=== PATIENT | female | born 1955 | race Caucasian/White ===

== ENCOUNTER 2017-12-23 11:07 | Outpatient (CLI) | payer BC | END 2017-12-23 11:08 | disposition home or self-care (01) | LOC: BICMAMMO 11:07 | PROVIDERS: ATTEND Obstetrics & Gynecology | DX: Z12.31 Encounter for screening mammogram for malignant neoplasm of breast (principal); R92.1 Mammographic calcification found on diagnostic imaging of breast | CPT/HCPCS: 77063; 77067 ==

== ENCOUNTER 2018-07-29 12:26 | Emergency (ER) | payer BC | END 2018-07-29 14:34 | disposition home or self-care (01) | LOC: ERS 12:26 | DX: T63.441A Toxic effect of venom of bees, accidental (unintentional), initial encounter (principal) | CPT/HCPCS: 99282 ==

== ENCOUNTER 2019-03-25 21:24 | Emergency (ER) | payer BC | END 2019-03-25 22:24 | disposition home or self-care (01) | LOC: ERS 21:24 | DX: H43.812 Vitreous degeneration, left eye (principal) | CPT/HCPCS: 99283 ==

== ENCOUNTER 2019-04-28 11:55 | Day surgery (SDC) | payer BC ==
[2019-04-27 10:36] VITALS: BMI 21.4
[~2019-04-28 11:55] MED LIST: Bupivacaine PF 0.75% SDV 10 ML ONE; CEFAZOLIN 1 GM VIAL ONE; EPINEPHrine 0.3 MG in Ophthalmic Irrigation Solution 500 ML IRR SCH; Fentanyl 100 MCG/2 ML VIAL ONE; Lidocaine 1% PF 5 ML VIAL ONE; Lidocaine 4% PF 5 ML AMP ONE; Maxitrol 0.1% Opth Oint 3.5 GM TUBE ONE; Midazolam HCl 2 mg/2 ml Vial ONE; PROPOFOL 200 MG/20 ML VIAL ONE; Triamcinolone 40 MG/ML VIAL ONE
[2019-04-28] MEDS ORDERED: Phenylephrine 2.5% Ophth Soln 5 ML BOT ONE (12:36)
[2019-04-28] MEDS ORDERED: Cyclopentolate 1% Opth Drop 2 ML BOT ONE (12:37)
--- NOTE | 2019-04-28 23:14 | OP ---
DATE OF PROCEDURE: 04/28/2019 PRINCIPAL PREOPERATIVE DIAGNOSIS: Vitreous hemorrhage, left eye. POSTOPERATIVE DIAGNOSES: 1. Vitreous hemorrhage, left eye. 2. Horseshoe retinal tear, left eye. ESTIMATED BLOOD LOSS: None. SPECIMENS REMOVED: None. COMPLICATIONS: None. ANESTHESIA: MAC with retrobulbar block. SUMMARY OF THE OPERATION: The patient was identified in the preoperative holding area, where the correct eye being the left eye was marked for surgery. The patient was taken to the operating room, where MAC anesthesia was induced. A retrobulbar block was administered into the left eye. The block consisted of a 1:1 ratio of 4% lidocaine and 0.75% Marcaine. Total of 5 mL was administered. The left eye was then prepped and draped in the usual sterile ophthalmic fashion for surgery. A wire-clip lid speculum was placed. A standard 25-gauge pars plana vitrectomy platform was fashioned with trocars placed approximately 4 mm from the limbus. The infusion was noted to be within the vitreous cavity prior to being turned on to an infusion pressure of 30 mmHg. The light pipe and microvitrector were introduced into the eye under visualization with the BIOM viewing system. Significant vitreous hemorrhage was noted obscuring adequate view of the fundus. A careful core vitrectomy was performed, followed by progressively posterior and peripheral shave vitrectomy as the view became clear with clearance of the vitreous hemorrhage. A horseshoe retinal tear was noted at approximately 1:30. Great care was taken to relieve all traction from this defect. The Endolaser was used to provide barricade laser with 3 to 4 confluent rows of laser around the aforementioned defect. The 360-degree scleral depression exam of the periphery was performed, and no defects beyond the initial one were noted. The cannulas were sequentially removed with suturing required of the superotemporal sclerotomy. Following suturing, all sclerotomies were noted to be watertight. Subconjunctival Ancef and Kenalog were injected. The wire-clip lid speculum was removed, followed by application of TobraDex ophthalmic ointment and a light patch and shield. The patient tolerated the procedure well and was taken to outpatient recovery area in good condition. Job ID: [id number]
== END 2019-04-28 15:56 | disposition home or self-care (01) ==
LOC: SDC 11:55
PROVIDERS: ATTEND Ophthalmology Retina Specialist
PROC: 08T53ZZ Resection of Left Vitreous, Percutaneous Approach (ICD-10-PCS; principal; 2019-04-28)
PROC: 08QF3ZZ Repair Left Retina, Percutaneous Approach (ICD-10-PCS; principal; 2019-04-28)
DX: H43.12 Vitreous hemorrhage, left eye (principal); H33.312 Horseshoe tear of retina without detachment, left eye
CPT/HCPCS: J0171; J0690; J2001; J2250; J2704; J3010; J3301; J3490

== ENCOUNTER 2019-08-10 20:23 | Inpatient (IN) | payer BC, OTHER ==
[~2019-08-10 20:23] MED LIST changes: -Bupivacaine PF 0.75% SDV 10 ML ONE; -CEFAZOLIN 1 GM VIAL ONE; -EPINEPHrine 0.3 MG in Ophthalmic Irrigation Solution 500 ML IRR SCH; -Fentanyl 100 MCG/2 ML VIAL ONE; +Iopamidol-370 76% 500 ML 1 ML ONE; -Lidocaine 1% PF 5 ML VIAL ONE; -Lidocaine 4% PF 5 ML AMP ONE; -Maxitrol 0.1% Opth Oint 3.5 GM TUBE ONE; -Midazolam HCl 2 mg/2 ml Vial ONE; -PROPOFOL 200 MG/20 ML VIAL ONE; -Triamcinolone 40 MG/ML VIAL ONE
[2019-08-10 20:41] LABS: #Basophils 0.1 thou/uL (0.0-0.2); #Eosinphils 0.1 thou/uL (0.0-0.7); #Lymphocytes 3.2 thou/uL (1.20-3.40); #Monocytes 0.8 thou/uL (0.11-0.59); #Neutrophils 3.3 thou/uL (1.40-6.50); %Basophils 1.1 % (0.0-1.0); %Eosinophils 1.5 % (0.0-10.0); %Lymphocytes 42.5 % (21.0-51.0); %Monocytes 10.1 % (0.0-10.0); %Neutrophils 44.9 % (42.0-75.0); Hemoglobin 14.1 g/dL (12.0-16.0); Mean Corpuscular HGB CONC 32.4 g/dL (32.0-36.0); Mean Corpuscular Hemoglobin 31.3 pg (27.0-31.0); Mean Corpuscular Volume 96.6 fL (78.0-98.0); Mean Platelet Volume 7.7 fL (7.4-10.4); Platelet Count 266 thou/uL (130-400); RBC Distribution Width 11.8 % (11.5-14.5); Red Blood Cell (RBC) Count 4.52 mill/uL (4.20-5.40); White Blood Cell (WBC) Count 7.4 thou/uL (4.8-10.8)
[2019-08-10 20:47] LABS: INR-International Normal Ratio 0.9; PTT 29.2 SEC (22.9-36.1); Prothrombin Time 12.6 sec (12.0-14.7)
--- NOTE | 2019-08-10 20:52 | CT ---
CT BRAIN WITHOUT CONTRAST: Indication: History of level I stroke with facial droop and right sided weakness. FINDINGS: No definite acute infarct, hemorrhage, or hydrocephalus is present. Septum pallidum and hemorrhage ar e midline. Skull and intracranial soft tissues are within normal limits. IMPRESSION: No acute intracranial abnormality. Findings were called to Gracie Caceres, Subcontract Administrator, to Dr. Garrison at 8:38 p.m. on 08-10-2019. Code CR POS: BH
[2019-08-10 20:54] LABS: ALT (SGPT) 16 U/L (8-55); AST (SGOT) 19 U/L (5-34); Albumin 4.5 g/dL (3.4-4.8); Alkaline Phosphatase 77 U/L (40-110); Anion Gap 13 mmol/L (10-20); BUN (Urea Nitrogen) 10 mg/dL (9.8-20.1); Bilirubin, Total 0.4 mg/dL (0.2-1.2); CK (CPK) 60 U/L (29-168); Calc. Creatinine Clearance 0 mL/min (70-130); Calcium 10.3 mg/dL (7.8-10.44); Carbon Dioxide 31 mmol/L (23-31); Chloride 101 mmol/L (98-107); Estimated GFR-MDRD 78; Globulin 3.1 g/dL (2.4-3.5); Glucose 144 mg/dL (80-115); Potassium 3.5 mmol/L (3.5-5.1); Protein, Total 7.6 g/dL (6.0-8.3); Sodium 141 mmol/L (136-145)
[2019-08-10 21:26] LABS: Bilirubin Negative (Negative); Blood, Urine Negative (Negative); Clarity Clear (Clear); Glucose, Urine (Dipstick) Normal (Negative); Leukocyte Negative Leu/uL (Negative); Nitrite Negative (Negative); Protein, Urine (Dipstick) Negative (Neg-Trace); Urobilinogen Normal mg/dL (Less than 2)
[2019-08-10] MEDS ORDERED: Aspirin 325 MG TAB ONE (21:54)
[2019-08-11 01:00] LABS: Troponin I 0.021 ng/mL (< 0.028)
[2019-08-11] MEDS ORDERED: Acetaminophen 650 MG Suppository PR PRN (02:27)
[2019-08-11 03:07] LABS: #Basophils 0.1 thou/uL (0.0-0.2); #Lymphocytes 1.6 thou/uL (1.20-3.40); #Monocytes 0.4 thou/uL (0.11-0.59); #Neutrophils 7.3 thou/uL (1.40-6.50); %Basophils 0.8 % (0.0-1.0); %Eosinophils 0.3 % (0.0-10.0); %Lymphocytes 17.1 % (21.0-51.0); %Monocytes 3.8 % (0.0-10.0); %Neutrophils 78.1 % (42.0-75.0); Hemoglobin 14.5 g/dL (12.0-16.0); Mean Corpuscular HGB CONC 33.1 g/dL (32.0-36.0); Mean Corpuscular Hemoglobin 31.7 pg (27.0-31.0); Mean Platelet Volume 8.3 fL (7.4-10.4); Platelet Count 244 thou/uL (130-400); RBC Distribution Width 11.7 % (11.5-14.5); Red Blood Cell (RBC) Count 4.56 mill/uL (4.20-5.40); White Blood Cell (WBC) Count 9.3 thou/uL (4.8-10.8)
--- NOTE | 2019-08-11 03:19 | PDOC.HHP ---
Hospitalist HPI - History of Present Illness AMS/Dysarthria History of Present Illness: Per ED notes she had been noted to have a right facial droop and right sided weakness with ataxia that started at 19:55pm yesterday evening. Brought in by her daughter. She apparently was recently admitted at [facility] where she had a normal CT head and normal Brain MRI. Reportedly at baseline when she was discharged home and suddenly started with tingling in her right arm with weakness. ED Course: CT head showed no acute intracranial abnormality. CTA done as well, reportedly unremarkable. UA showed Specific Bruce of 1.045, otherwise normal. WCC 7.4, Hgb 14.1, Hct 43.7, Platelets 266 Trop negative. CK 60. BMP normal. Given Aspirin in the ED. Hospitalist ROS - Review of Systems ROS unobtainable: due to mental status - Medication Medications: ALLERGIES: NKDA CURRENT MEDICATIONS: To be confirmed. Hospitalist History - Past Medical History Source: patient - Past Surgical History Past Surgical History: reports: Hysterectomy, Hernia Repair - Family History Family History: reports: no pertinent history - Social History Smoking Status: Never smoker Alcohol: reports: None Drugs: reports: none Living Situation: With Family - Exam General Appearance: ill appearing General - other findings: Chills, visibly upset and agitated, attempting to get out of bed Eye: PERRL, anicteric sclera ENT: normocephalic atraumatic Neck: supple, no lymphadenopathy Heart: RRR, normal peripheral pulses Respiratory: CTAB, normal chest expansion Gastrointestinal: soft Extremities: no edema Psychiatric - other findings: Patient agitated, dysarthria, confused Hospitalist Results - Labs Result Diagrams: 08/11/19 02:52 08/11/19 02:52 Lab results: WBC 7.4 thou/uL (4.8-10.8) 08/10/19 20:30 Hgb 14.1 g/dL (12.0-16.0) 08/10/19 20:30 Hct 43.7 % (36.0-47.0) 08/10/19 20:30 MCV 96.6 fL (78.0-98.0) 08/10/19 20:30 Plt Count 266 thou/uL (130-400) 08/10/19 20:30 Neutrophils % 44.9 % (42.0-75.0) 08/10/19 20:30 Sodium 141 mmol/L (136-145) 08/10/19 20:30 Potassium 3.5 mmol/L (3.5-5.1) 08/10/19 20:30 Chloride 101 mmol/L (98-107) 08/10/19 20:30 Carbon Dioxide 31 mmol/L (23-31) 08/10/19 20:30 BUN 10 mg/dL (9.8-20.1) 08/10/19 20:30 Creatinine 0.75 mg/dL (0.6-1.1) 08/10/19 20:30 Glucose 144 mg/dL (80-115) H 08/10/19 20:30 Calcium 10.3 mg/dL (7.8-10.44) 08/10/19 20:30 Total Bilirubin 0.4 mg/dL (0.2-1.2) 08/10/19 20:30 AST 19 U/L (5-34) 08/10/19 20:30 ALT 16 U/L (8-55) 08/10/19 20:30 Alkaline Phosphatase 77 U/L (40-110) 08/10/19 20:30 Creatine Kinase 60 U/L (29-168) 08/10/19 20:30 Troponin I 0.021 ng/mL (< 0.028) 08/11/19 00:23 Serum Total Protein 7.6 g/dL (6.0-8.3) 08/10/19 20:30 Albumin 4.5 g/dL (3.4-4.8) 08/10/19 20:30 Urine Ketones Negative mg/dL (Negative) 08/10/19 21:13 Urine Blood Negative (Negative) 08/10/19 21:13 Urine Nitrite Negative (Negative) 08/10/19 21:13 Ur Leukocyte Esterase Negative Lauren/uL (Negative) 08/10/19 21:13 - EKG Interpretation EKG: NSR< HR 87. Normal ST segments and normal T waves. - Radiology Interpretation CT scan - head Status: report reviewed by hi Hospitalist H&P A/P - Problem (1) Confused Code(s): R41.0 - DISORIENTATION, UNSPECIFIED Status: Acute (2) Dysarthria Code(s): R47.1 - DYSARTHRIA AND ANARTHRIA Status: Acute (3) Ataxia Code(s): R27.0 - ATAXIA, UNSPECIFIED Status: Acute (4) Fever and chills Code(s): R50.9 - FEVER, UNSPECIFIED Status: Acute - Plan Plan: Patient with temp of 99.7 on arrival to Stroke Floor with chills. No obvious source of infection. CXR ordered as well as UCx (despite UA negative). Frequently urinating since arrival to floor. Bladder scan to assess for PVR/possible retention. Tylenol for fever. COVID testing ordered following discussion with Dr. Billingsley. Lactic acid, blood cultures, Procalcitonin and CRP ordered as well. NPO. Consult ID for possible sepsis. Neuro consult and MRI in the morning. Obtain records from [facility]. CODE STATUS FULL Surrogate decision maker is her daughter Polina Birmingham who is a medical student that recently graduated. Discussed with Dr. Billingsley who agrees with plan as above.
[2019-08-11 03:24] LABS: Lactic Acid 2.1 mmol/L (0.5-2.2); Phosphorus 2.5 mg/dL (2.3-4.7)
[2019-08-11 03:32] LABS: Troponin I Less than 0.010 ng/mL (< 0.028)
[2019-08-11 03:36] LABS: Anion Gap 18 mmol/L (10-20); BUN (Urea Nitrogen) 8 mg/dL (9.8-20.1); Calc. Creatinine Clearance 0 mL/min (70-130); Calcium 10.1 mg/dL (7.8-10.44); Carbon Dioxide 23 mmol/L (23-31); Cardiac Risk 3.8 (Less than 4.5); Chloride 102 mmol/L (98-107); Cholesterol 207 mg/dl (< 200 Desired); Estimated GFR-MDRD 83; Glucose 137 mg/dL (80-115); HDL Cholesterol 54 mg/dL (>60 Neg Risk); LDL Cholesterol, Calculated 141 mg/dL; Sodium 139 mmol/L (136-145); Triglycerides 58 mg/dL (Less than 150)
[2019-08-11 04:03] VITALS: BMI 23.7
--- NOTE | 2019-08-11 08:21 | CT ---
CTA OF THE HEAD AND NECK WITH IV CONTRAST AND 3D REFORMATTED IMAGING: COMPARISON: CT of the brain without contrast dated 08/10/2019. FINDINGS: CTA OF THE NECK: There is calcified granuloma within the superior segment of the right lower lobe. The visualized aor tic arch and great vessels of the neck origins are within normal limits. No hemodynamically signific ant stenosis, occlusion, or aneurysmal formation is demonstrated. No definite enlarged lymph nodes a re evident. Thyroid, submandibular, and parotid glands are normal-appearing. There is mild cervical spondylosis. CTA OF THE HEAD: No hemodynamically significant stenosis, occlusion, or aneurysmal formation is demonstrated. The rig ht A1 segment is slightly diminutive, which is likely a congenital variant. No abnormal intraparench ymal enhancement is demonstrated. IMPRESSION: No hemodynamically significant stenosis, occlusion, or aneurysmal formation demonstrated. POS: BH
[2019-08-11 11:38] LABS: SARS-CoV-2 MS2 Positive; SARS-CoV-2 N Gene Negative; SARS-CoV-2 S Gene Negative; SARS-CoV-2 orf1ab Negative
[2019-08-11] MEDS: Aspirin 81 mg Enteric Coated Tablet PO SCH (12:35)
--- NOTE | 2019-08-11 12:38 | RAD ---
PORTABLE CHEST 1 VIEW: DATE: 08/11/2019. TIME: 2:08 AM. HISTORY: Fever. FINDINGS/IMPRESSION: The heart size is borderline. There is elevation of the right hemidiaphragm. No lobar consolidation , pneumothoraces, kevan pulmonary edema, or large effusions are seen. POS: MZA
--- NOTE | 2019-08-11 12:58 | PDOC.HOSPP ---
- Subjective Encounter Date: 08/11/19 Encounter Time: 12:56 Subjective: Ms. Birmingham was seen today in follow-up of confusion, right facila numbness, and right arm weakness. Ms. Birmingham is back to baseline. She says she remembers being confused last night. She is now alert ond oriented x4. She says she is still a bit unsteady when she walks. She had some nausea earlier today. - Objective Vital Signs & Weight: Vital Signs (12 hours) Temp Pulse Resp BP BP Pulse Ox 08/11/19 12:30 99.1 F 94 19 112/60 97 08/11/19 09:58 98 08/11/19 08:01 100.6 F H 114 H 12 124/72 08/11/19 04:08 102.3 F H 94 17 128/74 Weight Weight 138 lb 3.2 oz Result Diagrams: 08/11/19 02:52 08/11/19 02:52 Additional Labs: Accuchecks 08/11/19 08/10/19 01:44 20:33 POC Glucose 127 H 133 H Hospitalist ROS - Medication Medications: Active Medications Generic Name Dose Route Start Last Admin Trade Name Freq PRN Reason Stop Dose Admin Aspirin 81 mg 08/11/19 09:00 08/11/19 12:35 Ecotrin PO 81 mg DAILY MAURICIO Administration - Exam Eye: PERRL, anicteric sclera Heart: RRR, no murmur, no gallops, no rubs, normal peripheral pulses Respiratory: CTAB, no wheezes, no rales, no ronchi, normal chest expansion, no tachypnea Gastrointestinal: soft, non-tender, non-distended, normal bowel sounds, no palpable masses, no hepatomegaly Extremities: no cyanosis, no edema Psychiatric: normal affect, normal behavior, A&O x 3 Hosp A/P (1) Weakness of right upper extremity Code(s): R29.898 - OTH SYMPTOMS AND SIGNS INVOLVING THE MUSCULOSKELETAL SYSTEM Status: Acute (2) Fever Code(s): R50.9 - FEVER, UNSPECIFIED Status: Acute (3) Ataxia Code(s): R27.0 - ATAXIA, UNSPECIFIED Status: Acute (4) Confused Code(s): R41.0 - DISORIENTATION, UNSPECIFIED Status: Acute (5) Dyslipidemia Code(s): E78.5 - HYPERLIPIDEMIA, UNSPECIFIED Status: Chronic - Plan * Confusion, right upper extremity weakness, and nausea- discussed with Dr. Earl- suspected posterior circulation TIA * Will repeat the MRI, and check an Echo, monitor for AFIB * Dyslipidemia- continue statin * Fever- ? etiology- discossed the possiblity of LP, however, she is back to her baseline mental status- will continue to monitor- if fever persists, then will get LP, and await ID recommendations
--- NOTE | 2019-08-11 13:56 | CON ---
DATE OF CONSULTATION: 08/11/2019 NEUROLOGY CONSULTATION HISTORY OF PRESENT ILLNESS: Ms. Birmingham is a 63-year-old female with no significant past medical history, presented to the emergency room on 08/10/2019 with right facial droop and right-sided weakness with ataxia. The symptoms started around 7:55 yesterday evening. She was brought in by her daughter, who recently graduated from high school and the daughter provided the history. Per daughter on August 02, she had acute onset of dizziness and felt shaky and off-balance and was running into things. She did complain of nausea, but no vomiting, no focal symptoms or fever. From August 02 to , there were several episodes of chest tightness radiating to the neck, which lasted for about 10 minutes and resolves on its own. On August 06, she had an acute onset of dizziness, shakiness, and nausea which became worse associated with fatigue and a blood pressure, and the daughter checked her blood pressure during that time, which was 100/60 and vitals were stable. On August 08, she has difficulty getting words out followed by difficulty with gait. The daughter noticed she was leaning to one side when she was trying to go upstairs.. The daughter brought her to [facility] ED. At that time, she was alert and oriented, but difficulty in word finding, otherwise no focal deficits. CT scan was done which was negative. Since there is a concern about posterior circulation stroke, MRI of the brain was done which was also negative for acute intracranial pathology. She was kept in the observation unit and was found to have low vitamin D, which was replaced and then she was discharged the next day. On August 09 around 7:55 p.m she had acute onset right-sided weakness and also daughter noticed right facial droop en route to the hospital. CTA of the head and neck was ordered which was negative. Her weakness improved while she was in the emergency room. Around 8:15 p.m. at ED, the stroke alert was called She was given aspirin. Around 8:40 p.m., her symptoms resolved except confusion and low-grade fever, so she was transferred to the stroke floor and also nasal swab was done to rule out COVID because of fever, nausea, and vomiting. The patient at this time denies focal weakness, focal paresthesias. She does have nausea, vomiting, but no headache. REVIEW OF SYSTEMS: All systems were reviewed and were negative except for pertinent positives and negatives mentioned in the HPI. MEDICATIONS: The patient does not take any medications at home. ALLERGIES: NO KNOWN DRUG ALLERGIES. PAST MEDICAL HISTORY: Not significant. PAST SURGICAL HISTORY: Hysterectomy and hernia repair. FAMILY HISTORY: No significant family history. SOCIAL HISTORY: The patient lives with the family. Denies alcohol, nicotine, or illegal drug abuse. Vital Signs & Weight: Vital Signs (12 hours) Temp Pulse Resp BP BP Pulse Ox 08/11/19 12:30 99.1 F 94 19 112/60 97 08/11/19 09:58 98 08/11/19 08:01 100.6 F H 114 H 12 124/72 08/11/19 04:08 102.3 F H 94 17 128/74 Weight Weight 138 lb 3.2 oz Result Diagrams: 08/11/19 02:52 08/11/19 02:52 Additional Labs: Accuchecks 08/11/19 08/10/19 01:44 20:33 POC Glucose 127 H 133 H Hospitalist ROS - Medication Medications: Active Medications Generic Name Dose Route Start Last Admin Trade Name Vladimirq PRN Reason Stop Dose Admin Aspirin 81 mg 08/11/19 09:00 08/11/19 12:35 Ecotrin PO 81 mg DAILY MAURICIO Administration -Physical Exam Eye: PERRL, anicteric sclera Heart: RRR, no murmur, no gallops, no rubs, normal peripheral pulses Respiratory: CTAB, no wheezes, no rales, no ronchi, normal chest expansion, no tachypnea Gastrointestinal: soft, non-tender, non-distended, normal bowel sounds, no palpable masses, no hepatomegaly Extremities: no cyanosis, no edema NEUROLOGIC: Mental status: Patiemnt is alert and oriented x 3 Cranial nerves 2 through 12 intact. Motor muscle, tone, and bulk are normal. Strength 5/5 bilaterally. Cerebellar, finger-nose testing showed mild dysmetria. Gait not tested because of the patient's safety reasons. DATA REVIEWED: I reviewed the labs, which are essentially unremarkable. EKG showed normal sinus rhythm. Head CT did not reveal any acute intracranial pathology. ASSESSMENT AND PLAN: Ms. Chavez is consulted to rule out posterior circulation cerebrovascular accident. She is currently COVID rule out because of nausea, vomiting, fever, and chills. Consider MRI of the brain to rule out acute intracranial pathology. Echocardiogram to rule out cardioembolic source. Telemetry to rule out arrhythmias. Consider aspirin and statin. Check fasting lipid profile and hemoglobin A1c. Recommend starting aspirin and statin for secondary stroke prevention. Recommend EEG to rule out seizures since there is history of confusion spells. Neuro checks every 4 hours. Further recommendations depend on the results of the testing. DVT prophylaxis. Continue medical management per primary team. Plan discussed with the patient and the patient's daughter, Polina Birmingham. We will continue to follow. Thank you for the consult. Job ID: [id number] MTDD
--- NOTE | 2019-08-11 16:03 | MRI ---
MRI OF THE BRAIN WITHOUT CONTRAST: 08/11/19 HISTORY: TIA, facial drooping, right sided weakness. FINDINGS: Correlation is made with the previous day's CT scan. No restricted diffusion was seen. No evidence of infarct, hemorrhage, midline sift or abnormal extra-axial fluid collections were seen. The ventricul ar size is appropriate and the basilar cisterns patent. The visualized paranasal sinuses and mastoid air cells are well aerated. IMPRESSION: No evidence of acute intracranial process. POS: MZA
[2019-08-11] MEDS: Atorvastatin Calcium 40 MG TAB PO SCH (21:28)
--- NOTE | 2019-08-11 23:27 | CON ---
DATE OF CONSULTATION: 08/11/2019 REASON FOR CONSULTATION: Altered mental state with fever. HISTORY OF PRESENT ILLNESS: A 63-year-old who has a history of multiple travel overseas to [place] and [place]. 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 She has been in [place] since 2018 and she reports that she always took malaria prophylaxis when she was in [place], but not clear about [place]. She remembers been bitten by an animal 25 years ago, but not since. She used to play with bats when living I believe in [place] with her with her family. Other than that, her health situation has always been very good. She never takes medication. She was in her usual state of health until the end of last week when she was noticed to have altered mental state with confusional state, inability to perform simple tasks. She was brought to [facility] [place] [place] and stayed there briefly for about two days, had a normal CT and reportedly had a normal MRI and she was released and within even a few minutes in the home setting, she had a sensation of right-sided numbness and difficulty with word finding, so she was brought to the emergency room here, had a stroke protocol rule out which was negative. She has had an MRI again which was negative. Currently, she is normal, but early this morning she had a temperature of 102 and during this event she was again confused and could not answer questions, did not know where she was and that resolved once the temperature resolved. Currently, she is fine. She denies headaches, no visual symptoms, sore throat, odynophagia, dysphagia. No cough, sputum production. No chest pain, no back pain, no arthralgias. No abdominal pain or diarrhea. No genitourinary symptoms. Never had seizure activity witnessed. PAST MEDICAL HISTORY: Pretty negative. She has had numerous travel episodes in the past to [place] as well as [place] and always took malaria prophylaxis reportedly. She had one bite from an animal 25 years ago in [place] and she tried to get bats out of the property when she was living in [place] or in [facility]. ALLERGIES: SHE DOES NOT HAVE ANY REPORTED DRUG ALLERGIES. MEDICATIONS: Had not been taken medications at this moment. She is on just the iron medications here in the hospital. FAMILY HISTORY: Her had a liver transplant and he has been pretty much self quarantine since May, but no other disease in the family of significance. She has a cat, has not been bitten by insects lately. PHYSICAL EXAMINATION: VITAL SIGNS: The T-max was 102.3 earlier today. She is now 98.8, blood pressure 119/65, pulse 73, respirations 16, and O2 saturation 98. She does not appear in distress. Ocular movements conjugate. Oral cavity normal. Teeth in very good shape. NECK: Supple. No jugular vein distention. LUNGS: Symmetric, clear breath sounds. HEART: S1 and S2, regular rate. No S3 or S4. ABDOMEN: Soft, not distended or tender. No ascites. No bladder distention. EXTREMITIES: Moves extremities equally. NEUROLOGIC: She is awake, oriented, follows commands. Recollection is pretty decent. LABORATORY DATA: COVID PCR was negative. White cell count 7.4 and 9.3, hemoglobin 14, platelets 266. She has 78% neutrophils now. She had 44.9 on arrival and a little bit of monocyte increased percentage cowart, INR 0.9, and chemistry on arrival was essentially normal except for glucose of 144. Urinalysis was essentially normal. Specific gravity was a little bit high. We have ordered blood cultures. IMAGING STUDIES: Include a brain MRI, chest x-ray all within normal limits. CT [place] of [place]. CT angiogram all normal. ASSESSMENT: 1. Multiple travels to [place] and [place] for many years related to her profession. 2. New onset of fever with delirium during the febrile episodes as well as sensation of unilateral numbness without focal neurological findings and a normal MRI and a fairly normal lab evaluation. DISCUSSION: Differential diagnosis includes an acute febrile illness associated with altered mental due to the fever. This could be systemic viral infection for example or bacterial infection or a PROFESSOR [employer]GERY infection of viral nature. Chronic infectious process that was present since her days overseas is also possible particularly malaria, which can recur at times many years later. Sleeping sickness is not likely, tuberculosis is not likely in view of the fairly normal findings on CBC and chemistry evaluation as well as radiological evaluation. Noninfectious metabolic syndromes, autoimmune syndromes and specifically the PROFESSOR [employer] SURGERY or systemic autoimmune syndromes need to be considered as well. We will go and submit CSF for evaluation and further testing as needed. We will test her for malaria smear, Bartonella, CROW screen. She is going to have an EEG as well. Job ID: [id number]
--- NOTE | 2019-08-12 12:28 | PDOC.HOSPP ---
- Subjective Encounter Date: 08/12/19 Encounter Time: 12:26 Subjective: Ms. Birmingham was seen today in follow-up of metabolic encephalopathy, and fever. She is back to baseline. She does not have any new complaints. There was no fever overnight. - Objective Vital Signs & Weight: Vital Signs (12 hours) Temp Pulse Resp BP Pulse Ox 08/12/19 11:48 98.6 F 73 16 103/56 L 96 08/12/19 03:21 98.1 F 65 16 95/54 L 97 Weight Admit Weight 138 lb 3.2 oz Weight 138 lb 3.2 oz I&O: 08/11/19 08/12/19 08/13/19 06:59 06:59 06:59 Intake Total 290 320 Balance 290 320 Result Diagrams: 08/11/19 02:52 08/11/19 02:52 Hospitalist ROS - Medication Medications: Active Medications Generic Name Dose Route Start Last Admin Trade Name Freq PRN Reason Stop Dose Admin Aspirin 81 mg 08/11/19 09:00 08/11/19 12:35 Ecotrin PO 81 mg DAILY MAURICIO Administration Atorvastatin Calcium 40 mg 08/11/19 21:00 08/11/19 21:28 Lipitor PO 40 mg HS MAURICIO Administration - Exam Eye: PERRL, anicteric sclera Heart: RRR, no murmur, no gallops, no rubs, normal peripheral pulses Respiratory: CTAB, no wheezes, no rales, no ronchi, normal chest expansion Gastrointestinal: soft, non-tender, non-distended, normal bowel sounds, no palpable masses, no hepatomegaly Extremities: no cyanosis, no edema Hosp A/P (1) Weakness of right upper extremity Code(s): R29.898 - OTH SYMPTOMS AND SIGNS INVOLVING THE MUSCULOSKELETAL SYSTEM Status: Acute (2) Fever Code(s): R50.9 - FEVER, UNSPECIFIED Status: Acute (3) Ataxia Code(s): R27.0 - ATAXIA, UNSPECIFIED Status: Acute (4) Confused Code(s): R41.0 - DISORIENTATION, UNSPECIFIED Status: Acute (5) Dyslipidemia Code(s): E78.5 - HYPERLIPIDEMIA, UNSPECIFIED Status: Chronic - Plan * Confusion, right upper extremity weakness, and nausea- possible posterior circulation TIA * Continue aspirin and lipitor * MRI was negative, Echo results noted * Await EEG * Fever- ? etiology- ID recommendations noted. Malaria screen was negative * LP has been ordered * CROW has been ordered to screen for Auto-immune disorders
--- NOTE | 2019-08-12 14:08 | EEG ---
Referring Physician: Shelby SALMERON EEG # [id number] TEST TYPE: EXTENDED CONTINUOUS VIDEO EEG REPORT: This EEG was performed using 24 channel [employer] video digital EEG machine with 24 disc electrodes. This was an extended 2 hour 20 minutes of inpatient video EEG recording. Digital analysis of the EEG was done with spike and seizure detection which revealed no abnormalities. BACKGROUND: The posterior background rhythm is 9-10 hertz. The background rhythm attenuates with eye opening and enhances with eye closure. HYPERVENTILATION: No significant response seen with hyperventilation. PHOTIC STIMULATION: Bioccipital symmetric driving response is observed. SLEEP: Drowsiness is observed. SPELLS: 3 spells of funny feeling in the head not associated with abnormal EEG correlate EEG DIAGNOSIS: NORMAL AWAKE AND DROWSY EEG. NO ICTAL OR INTERICTAL EPILEPTIFORM ABNORMALITIES SEEN DURING THE RECORDING. Ritual Circumciser:JOHN Gastroenterology Professor: EEG.JESUS BURROWS
[2019-08-12 15:09] LABS: CSF Source CSF; Clarity Clear (Clear); Tube # 4
[2019-08-12 15:11] LABS: Cell Count Non Hematic 36 %; Lymphocytes 64 %
--- NOTE | 2019-08-12 15:43 | RAD ---
PROCEDURE: XR Lumbar Punct Only W/Fluoro PROVIDED CLINICAL HISTORY: Fever and abnormal mental status COMPARISON: None TECHNIQUE: After informed consent was obtained, the patient was placed on the fluoroscopy table in the prone pos ition. An area overlying the L2-3 interspace was marked, and the area was meticulously prepped and draped in usual sterile fashion. Skin and subcutaneous tissues were infiltrated with buffered 1% lidocaine for local anesthesia. A 22- gauge spinal needle was advanced into the central spinal canal. There inner stylette was removed with a return of clear cerebral spinal fluid. Opening pressure of 26 cm of water was obtained. Approx imately 8.75 mL of clear cerebral spinal fluid was collected. Stylette was replaced, and the needle was removed. Hemostasis was achieved with direct pressure, and a dry sterile dressing was placed. The patient tole rated the procedure well and without immediate complication. Patient was transported to her hospital room in stable condition. Fluoroscopy: Dose-26.9 microGy meter squared Time-0.4 minutes IMPRESSION: 1. Elevated opening pressure of 26 cm of water. 2. Technically successful lumbar puncture at the L2-3 level.
--- NOTE | 2019-08-12 16:09 | PDOC.HOSPP ---
- Subjective Encounter Date: 08/12/19 Subjective: NEUROLOGY PROGRESS NOTE Patient feels better today. No acute events overnight. - Objective Vital Signs & Weight: Vital Signs (12 hours) Temp Pulse Resp BP Pulse Ox 08/12/19 15:16 98.2 F 64 16 108/58 L 98 08/12/19 11:48 98.6 F 73 16 103/56 L 96 Weight Admit Weight 138 lb 3.2 oz Weight 138 lb 3.2 oz I&O: 08/11/19 08/12/19 08/13/19 06:59 06:59 06:59 Intake Total 290 320 Balance 290 320 Result Diagrams: 08/11/19 02:52 08/11/19 02:52 Radiology Reviewed by me: Yes EKG Reviewed by me: Yes Hospitalist ROS - Review of Systems Constitutional: reports: fever Eyes: denies: pain, vision change, conjunctivae inflammation, eyelid inflammation, redness, other ENT: denies: ear pain, ear discharge, nose pain, nose discharge, nose congestion , mouth pain, mouth swelling, throat pain, throat swelling, other Respiratory: denies: cough, dry, shortness of breath, hemoptysis, SOB with excertion, pleuritic pain, sputum, wheezing, other Cardiovascular: denies: chest pain, palpitations, orthopnea, paroxysmal noc. dyspnea, edema, light headedness, other Gastrointestinal: denies: nausea, vomiting, abdominal pain, diarrhea, constipation, melena, hematochezia, other Genitourinary: denies: dysuria, frequency, incontinence, hematuria, retention, other Musculoskeletal: denies: neck pain, shoulder pain, arm pain, back pain, hand pain, leg pain, foot pain, other Skin: denies: rash, lesions, atilio, bruising, other Neurological: denies: weakness, numbness, incoordination, change in speech, confusion, seizures, other - Medication Medications: Active Medications Generic Name Dose Route Start Last Admin Trade Name Christian PRN Reason Stop Dose Admin Aspirin 81 mg 08/11/19 09:00 08/11/19 12:35 Ecotrin PO 81 mg DAILY MAURICIO Administration Atorvastatin Calcium 40 mg 08/11/19 21:00 08/11/19 21:28 Lipitor PO 40 mg HS MAURICIO Administration - Exam General Appearance: awake alert Eye: PERRL, anicteric sclera ENT: normocephalic atraumatic, no oropharyngeal lesions, moist mucosa Neck: supple Heart: RRR Respiratory: CTAB Gastrointestinal: soft Extremities: no cyanosis, no clubbing, no edema Skin: normal turgor, no lesions, no rashes Neurological: cranial nerve grossly intact, normal sensation to touch, no weakness, no focal deficits, no new deficit Musculoskeletal: normal tone, normal strength, no muscle wasting Psychiatric: normal affect, normal behavior, A&O x 3, oriented to person, oriented to place, oriented to time Hosp A/P (1) TIA (transient ischemic attack) Code(s): G45.9 - TRANSIENT CEREBRAL ISCHEMIC ATTACK, UNSPECIFIED Status: Acute (2) Ataxia Code(s): R27.0 - ATAXIA, UNSPECIFIED Status: Acute (3) Confused Code(s): R41.0 - DISORIENTATION, UNSPECIFIED Status: Acute (4) Dysarthria Code(s): R47.1 - DYSARTHRIA AND ANARTHRIA Status: Acute (5) Fever Code(s): R50.9 - FEVER, UNSPECIFIED Status: Acute (6) Dyslipidemia Code(s): E78.5 - HYPERLIPIDEMIA, UNSPECIFIED Status: Chronic - Plan old records reviewed/req, PT/OT, speech therapy 63 year old admitted for concern of posterior circulation TIA. MRI Brain reviewed which was negative Echocardiogram did not show any thrombus or PFO. Continue aspirin and statin for secondary stroke prevention. Continue home medications. Continue medical management per primary team. PT/OT/Speech CTA of neck and head unremarkable. EEG reviewed which was normal and negative for seizure activity. LP under fluoroscopy today. Will follow up on results.
--- NOTE | 2019-08-12 16:30 | PRG ---
DATE OF SERVICE: 08/12/2019 SUBJECTIVE: Feeling better. Did not have any recurrence of the abnormal mental state since I last talked to her yesterday. Does not have a headache right now. No respiratory symptoms or abdominal pain. Voiding without difficulty. No diarrhea. OBJECTIVE: VITAL SIGNS: She has been afebrile since the first day of admission when she had a fever. BP 108/58, pulse 64, O2 saturation 98. GENERAL: Appears in no distress. HEENT: Ocular movements are conjugate. NECK: Supple. LUNGS: Symmetric, clear breath sounds. CARDIAC: S1 and S2, regular rate. ABDOMEN: Soft, not distended or tender. LABORATORY DATA: White cell count is 9.3, hemoglobin of 14.5. we have a CK which was normal at 60. CSF with 202 WBCs with predominance of lymphocytes of 64%, protein was high as 147, glucose 61. ASSESSMENT AND DISCUSSION: Fever with delirium, associated with abnormalities on CSF noted above, consistent with aseptic meningitis or encephalitis. In her case, she did have clinical findings that are consistent with encephalitic picture. The most common cause of this presentation in an otherwise normal person would be herpes simplex. We will go ahead and submit testing for herpes simplex, West Nile, Enterovirus, Cryptococcus neoformans, and start treating with acyclovir intravenously q.8 hours. She will have to stay until we have the final results of the above tests. Job ID: [id number] MTDD
[2019-08-12] MEDS: Aspirin 81 mg Enteric Coated Tablet PO SCH (16:40)
[2019-08-12] MEDS: Acetaminophen 325 MG TAB PO PRN (16:40)
[2019-08-12 16:58] LABS: Syphilis Antibody Nonreactive (Nonreactive); Syphilis Antibody Index 0.07 S/CO (<1.00 Non-Reactive)
[2019-08-12 18:16] LABS: Amphetamine Not Detected (NotDetected); Barbiturates Screen Not Detected (NotDetected); Benzodiazepine Screen Not Detected (NotDetected); Cocaine Metabolite Screen Not Detected (NotDetected); Medtox Control Line Valid? VALID (VALID); Medtox Reader # READER 1; Methadone Not Detected (NotDetected); Methamphetamine Not Detected (NotDetected); Opiate Screen Not Detected (NotDetected); Oxycodone Screen Not Detected (NotDetected); Phencyclidine (PCP) Not Detected (NotDetected); THC/Cannabinoid Screen Not Detected (NotDetected); Tricyclic Screen Not Detected (NotDetected)
[2019-08-12] MEDS: Atorvastatin Calcium 40 MG TAB PO SCH (20:02)
[2019-08-13] MEDS: Acetaminophen 325 MG TAB PO PRN (00:36)
[2019-08-13] MEDS: Ondansetron PF 4 MG/2 ML Vial IVP PRN (09:13)
[2019-08-13] MEDS: Aspirin 81 mg Enteric Coated Tablet PO SCH (09:14)
[2019-08-13 09:35] LABS: #Eosinphils 0.1 thou/uL (0.0-0.7); #Lymphocytes 1.7 thou/uL (1.20-3.40); #Monocytes 0.8 thou/uL (0.11-0.59); %Basophils 0.4 % (0.0-1.0); %Eosinophils 1.5 % (0.0-10.0); %Lymphocytes 22.3 % (21.0-51.0); %Monocytes 10.3 % (0.0-10.0); %Neutrophils 65.3 % (42.0-75.0); Hemoglobin 13.7 g/dL (12.0-16.0); Mean Corpuscular HGB CONC 32.9 g/dL (32.0-36.0); Mean Corpuscular Hemoglobin 32.2 pg (27.0-31.0); Mean Platelet Volume 8.7 fL (7.4-10.4); Platelet Count 233 thou/uL (130-400); RBC Distribution Width 11.8 % (11.5-14.5); Red Blood Cell (RBC) Count 4.25 mill/uL (4.20-5.40); White Blood Cell (WBC) Count 7.7 thou/uL (4.8-10.8)
[2019-08-13 09:55] LABS: Anion Gap 13 mmol/L (10-20); BUN (Urea Nitrogen) 19 mg/dL (9.8-20.1); Calc. Creatinine Clearance 65 mL/min (70-130); Calcium 9.4 mg/dL (7.8-10.44); Carbon Dioxide 31 mmol/L (23-31); Chloride 103 mmol/L (98-107); Estimated GFR-MDRD 66; Glucose 154 mg/dL (80-115); Potassium 3.6 mmol/L (3.5-5.1); Sodium 143 mmol/L (136-145)
--- NOTE | 2019-08-13 11:49 | PDOC.HOSPP ---
- Subjective Encounter Date: 08/13/19 Subjective: NEUROLOGY PROGRESS NOTE No acute events overnight. CSF results consistent with aseptic meningitis. ID on board. - Objective Vital Signs & Weight: Vital Signs (12 hours) Temp Pulse Pulse Resp BP BP Pulse Ox 08/13/19 10:55 98.5 F 77 16 118/67 98 08/13/19 09:20 76 128/65 08/13/19 07:01 98.2 F 72 14 109/57 L 95 08/13/19 04:29 98.0 F 66 18 99/60 97 Weight Admit Weight 138 lb 3.2 oz Weight 138 lb 3.2 oz I&O: 08/12/19 08/13/19 08/14/19 06:59 06:59 06:59 Intake Total 290 320 300 Output Total 90 Balance 290 230 300 Result Diagrams: 08/13/19 08:51 08/13/19 08:51 Radiology Reviewed by me: Yes EKG Reviewed by me: Yes Hospitalist ROS - Review of Systems Constitutional: denies: fever, chills, sweats, weakness, malaise, other Eyes: denies: pain, vision change, conjunctivae inflammation, eyelid inflammation, redness, other ENT: denies: ear pain, ear discharge, nose pain, nose discharge, nose congestion , mouth pain, mouth swelling, throat pain, throat swelling, other Gastrointestinal: denies: nausea, vomiting, abdominal pain, diarrhea, constipation, melena, hematochezia, other Genitourinary: denies: dysuria, frequency, incontinence, hematuria, retention, other Musculoskeletal: denies: neck pain, shoulder pain, arm pain, back pain, hand pain, leg pain, foot pain, other Skin: denies: rash, lesions, atilio, bruising, other Neurological: reports: confusion - Medication Medications: Active Medications Generic Name Dose Route Start Last Admin Trade Name Freq PRN Reason Stop Dose Admin Acetaminophen 650 mg 08/11/19 02:27 08/13/19 00:36 Tylenol PO 650 mg Q4H PRN Administration Headache/Fever/Mild Pain (1-3) Aspirin 81 mg 08/11/19 09:00 08/13/19 09:14 Ecotrin PO 81 mg DAILY MAURICIO Administration Atorvastatin Calcium 40 mg 08/11/19 21:00 08/12/19 20:02 Lipitor PO 40 mg HS MAURICIO Administration Acyclovir Sodium 550 mg/ 111 mls @ 111 mls/hr 08/12/19 17:00 08/13/19 09:14 Sodium Chloride IVPB 111 mls Q8H MAURICIO Administration Ondansetron HCl 4 mg 08/11/19 02:50 08/13/19 09:13 Zofran IVP 4 mg Q6H PRN Administration Nausea/Vomiting Sodium Chloride 10 ml 08/11/19 02:27 08/13/19 09:14 Flush - Normal Saline IVF 10 ml Q12HR PRN Administration Saline Flush - Exam General Appearance: awake alert Eye: PERRL, anicteric sclera ENT: normocephalic atraumatic, no oropharyngeal lesions, moist mucosa Neck: supple, symmetric, no JVD Heart: RRR Respiratory: CTAB Gastrointestinal: soft, non-tender Extremities: no cyanosis, no clubbing, no edema Skin: normal turgor, no lesions, no rashes Neurological: no new deficit Musculoskeletal: normal tone, normal strength, no muscle wasting Psychiatric: A&O x 3 Hosp A/P (1) TIA (transient ischemic attack) Code(s): G45.9 - TRANSIENT CEREBRAL ISCHEMIC ATTACK, UNSPECIFIED Status: Acute (2) Ataxia Code(s): R27.0 - ATAXIA, UNSPECIFIED Status: Acute (3) Confused Code(s): R41.0 - DISORIENTATION, UNSPECIFIED Status: Acute (4) Dysarthria Code(s): R47.1 - DYSARTHRIA AND ANARTHRIA Status: Acute (5) Fever Code(s): R50.9 - FEVER, UNSPECIFIED Status: Acute (6) Dyslipidemia Code(s): E78.5 - HYPERLIPIDEMIA, UNSPECIFIED Status: Chronic - Plan old records reviewed/req, plan discussed w/ family 63 year old admitted for concern of posterior circulation TIA. However, CSF findings consistent with aseptic meningitis which can account for symptoms including confusion, fever and chills but still focal finding still raise concern for TIA. MRI Brain reviewed which was negative Echocardiogram did not show any thrombus or PFO. Continue aspirin and statin for secondary stroke prevention. PT/OT/Speech CTA of neck and head unremarkable. EEG reviewed which was normal and negative for seizure activity. Continue home medications. Continue medical management per primary team and ID. No further recommendations from neurology stand point.
--- NOTE | 2019-08-13 14:41 | PDOC.HOSPP ---
- Subjective Encounter Date: 08/13/19 Encounter Time: 14:39 Subjective: Ms. Birmingham was seen today in follow-up of probable viral encephalitis/ meningitis. she says she feels fine. No new complaints. she admits to having some depth perception difficulty, but says this started after she had surgery retinal surgery. - Objective Vital Signs & Weight: Vital Signs (12 hours) Temp Pulse Pulse Pulse Resp BP BP 08/13/19 10:55 98.5 F 77 16 08/13/19 10:23 75 74 116/64 125/64 08/13/19 09:20 76 128/65 08/13/19 07:01 98.2 F 72 14 08/13/19 04:29 98.0 F 66 18 BP Pulse Ox 08/13/19 10:55 118/67 98 08/13/19 10:23 08/13/19 09:20 08/13/19 07:01 109/57 L 95 08/13/19 04:29 99/60 97 Weight Admit Weight 138 lb 3.2 oz Weight 138 lb 3.2 oz I&O: 08/12/19 08/13/19 08/14/19 06:59 06:59 06:59 Intake Total 290 320 300 Output Total 90 Balance 290 230 300 Result Diagrams: 08/13/19 08:51 08/13/19 08:51 Hospitalist ROS - Medication Medications: Active Medications Generic Name Dose Route Start Last Admin Trade Name Freq PRN Reason Stop Dose Admin Acetaminophen 650 mg 08/11/19 02:27 08/13/19 00:36 Tylenol PO 650 mg Q4H PRN Administration Headache/Fever/Mild Pain (1-3) Aspirin 81 mg 08/11/19 09:00 08/13/19 09:14 Ecotrin PO 81 mg DAILY MAURICIO Administration Atorvastatin Calcium 40 mg 08/11/19 21:00 08/12/19 20:02 Lipitor PO 40 mg HS MAURICIO Administration Acyclovir Sodium 550 mg/ 111 mls @ 111 mls/hr 08/12/19 17:00 08/13/19 09:14 Sodium Chloride IVPB 111 mls Q8H MAURICIO Administration Ondansetron HCl 4 mg 08/11/19 02:50 08/13/19 09:13 Zofran IVP 4 mg Q6H PRN Administration Nausea/Vomiting Sodium Chloride 10 ml 08/11/19 02:27 05/14/20 09:14 Flush - Normal Saline IVF 10 ml Q12HR PRN Administration Saline Flush - Exam Eye: PERRL Heart: RRR, no murmur, no gallops, no rubs, normal peripheral pulses Respiratory: CTAB, no wheezes, no rales, no ronchi, normal chest expansion Gastrointestinal: soft, non-tender, non-distended, normal bowel sounds, no palpable masses, no hepatomegaly, no splenomegaly Extremities: no cyanosis, no edema Hosp A/P (1) Weakness of right upper extremity Code(s): R29.898 - OT SYMPTOMS AND SIGNS INVOLVING THE MUSCULOSKELETAL SYSTEM Status: Acute (2) Fever Code(s): R50.9 - FEVER, UNSPECIFIED Status: Acute (3) Ataxia Code(s): R27.0 - ATAXIA, UNSPECIFIED Status: Acute (4) Confused Code(s): R41.0 - DISORIENTATION, UNSPECIFIED Status: Acute (5) Dyslipidemia Code(s): E78.5 - HYPERLIPIDEMIA, UNSPECIFIED Status: Chronic - Plan * Viral Meningitis /Encephalitis - LP results noted as well as ID recommendations * Cryptococcal Ag was negative * Awaiting CROW to screen for auto-immune disorder * Depth Perception difficulty- recommend follow this up with Ophthalmology * Disposition as per ID
--- NOTE | 2019-08-13 18:58 | PRG ---
DATE OF SERVICE: 08/13/2019 SUBJECTIVE: Feeling well. No headaches. No recurrence of the delirium or confusional state. No respiratory symptoms or abdominal pain. No diarrhea. OBJECTIVE: VITAL SIGNS: Temperature is normal. Other vital signs are normal. HEENT: Ocular movements conjugate. NECK: Supple. LUNGS: Symmetric, clear breath sounds. HEART: S1 and S2, regular rate. ABDOMEN: Soft, not distended or tender. LABORATORY DATA: White cell count 7.7, hemoglobin 13.7, creatinine 0.87. PLAN: The assays for herpes simplex, West Nile, enterovirus are pending. Cryptococcus antigen was not detected as expected. Continue acyclovir. Hopefully by tomorrow, we will have the results. Job ID: [id number]
[2019-08-13] MEDS: Atorvastatin Calcium 40 MG TAB PO SCH (20:22)
[2019-08-14 05:11] LABS: Anion Gap 9 mmol/L (10-20); BUN (Urea Nitrogen) 14 mg/dL (9.8-20.1); Calc. Creatinine Clearance 70 mL/min (70-130); Calcium 9.2 mg/dL (7.8-10.44); Carbon Dioxide 32 mmol/L (23-31); Chloride 104 mmol/L (98-107); Estimated GFR-MDRD 72; Glucose 108 mg/dL (80-115); Potassium 4.2 mmol/L (3.5-5.1); Sodium 141 mmol/L (136-145)
[2019-08-14] MEDS: Aspirin 81 mg Enteric Coated Tablet PO SCH (09:22)
[2019-08-14] MEDS: Ondansetron PF 4 MG/2 ML Vial IVP PRN (10:31)
[2019-08-14 12:37] LABS: Bartonella henselae IgG Negative titer (Neg:<1:320); Bartonella henselae IgM Negative titer (Neg:<1:100); Bartonella quintana IgG Negative titer (Neg:<1:320); Bartonella quintana IgM Negative titer (Neg:<1:100)
--- NOTE | 2019-08-14 13:25 | PDOC.HOSPP ---
- Subjective Encounter Date: 08/14/19 Encounter Time: 13:23 Subjective: Ms. rollins was seen today in follow-up of encephalitis and posterior TIA symptoms. She says she had a little confusion earlier today, where she was " spaced out" for a few minutes. Her daughter was at the bedside and witnessed this. She says she feels fine now,with the exception of a little nausea. - Objective Vital Signs & Weight: Vital Signs (12 hours) Temp Pulse Resp BP Pulse Ox 08/14/19 11:24 98.5 F 76 16 123/67 99 08/14/19 07:53 98.6 F 73 10 L 110/66 98 08/14/19 04:00 98.5 F 75 16 105/57 L 98 Weight Admit Weight 138 lb 3.2 oz Weight 138 lb 3.2 oz I&O: 08/13/19 08/14/19 08/15/19 06:59 06:59 06:59 Intake Total 320 1362 Output Total 90 Balance 230 1362 Result Diagrams: 08/13/19 08:51 08/14/19 04:21 Hospitalist ROS - Medication Medications: Active Medications Generic Name Dose Route Start Last Admin Trade Name Freq PRN Reason Stop Dose Admin Acetaminophen 650 mg 08/11/19 02:27 08/13/19 00:36 Tylenol PO 650 mg Q4H PRN Administration Headache/Fever/Mild Pain (1-3) Aspirin 81 mg 08/11/19 09:00 08/14/19 09:22 Ecotrin PO 81 mg DAILY MAURICIO Administration Atorvastatin Calcium 40 mg 08/11/19 21:00 08/13/19 20:22 Lipitor PO 40 mg HS MAURICIO Administration Acyclovir Sodium 550 mg/ 111 mls @ 111 mls/hr 08/12/19 17:00 08/14/19 09:22 Sodium Chloride IVPB 111 mls Q8H MAURICIO Administration Ondansetron HCl 4 mg 08/11/19 02:50 08/14/19 10:31 Zofran IVP 4 mg Q6H PRN Administration Nausea/Vomiting Sodium Chloride 10 ml 08/11/19 02:27 08/14/19 09:23 Flush - Normal Saline IVF 10 ml Q12HR PRN Administration Saline Flush - Exam General Appearance: NAD Heart: RRR, no murmur, no gallops, no rubs, normal peripheral pulses Respiratory: CTAB, no wheezes, no rales, no ronchi, normal chest expansion, no tachypnea, normal percussion Gastrointestinal: soft, non-tender, non-distended, normal bowel sounds, no palpable masses, no hepatomegaly Extremities: no cyanosis, no edema Hosp A/P (1) Weakness of right upper extremity Code(s): R29.898 - OT SYMPTOMS AND SIGNS INVOLVING THE MUSCULOSKELETAL SYSTEM Status: Acute (2) Fever Code(s): R50.9 - FEVER, UNSPECIFIED Status: Acute (3) Ataxia Code(s): R27.0 - ATAXIA, UNSPECIFIED Status: Acute (4) Confused Code(s): R41.0 - DISORIENTATION, UNSPECIFIED Status: Acute (5) Dyslipidemia Code(s): E78.5 - HYPERLIPIDEMIA, UNSPECIFIED Status: Chronic - Plan * Viral Meningitis /Encephalitis - Discussed with Dr. Simmons, her symptoms are suspicious for Herpes Encephalitis -awaiting the final results ( West Nile, Herpes Symplex ) * TIA- continue aspirin and statin * Cryptococcal Ag was negative * Awaiting CROW to screen for auto-immune disorder * Depth Perception difficulty- recommend follow this up with Ophthalmology * Disposition as per ID
[2019-08-14] MEDS: Atorvastatin Calcium 40 MG TAB PO SCH (20:09)
[2019-08-15] MEDS: Aspirin 81 mg Enteric Coated Tablet PO SCH (09:04)
--- NOTE | 2019-08-15 12:03 | EKG ---
Test Reason : STROKE ALERT Blood Pressure : / mmHG Vent. Rate : 087 BPM Atrial Rate : 087 BPM P-R Int : 128 ms QRS Dur : 082 ms QT Int : 372 ms P-R-T Axes : 073 047 075 degrees QTc Int : 447 ms Normal sinus rhythm Normal ECG Confirmed by JULIANNA CRUZ ([id number]), rewrite editor DEA SUN ([id number]) on 08/15/2019 12:03:14 PM Referred By: SKY Confirmed By:JULIANNA Mayes
--- NOTE | 2019-08-15 14:37 | PDOC.HOSPP ---
- Subjective Encounter Date: 08/15/19 Encounter Time: 11:40 Subjective: she is sitting in the chair, not confused; viral studies still pending, eceptcrypto negative. no high wbcs, and cr nl. - Objective Vital Signs & Weight: Vital Signs (12 hours) Temp Pulse Resp BP Pulse Ox 08/15/19 11:40 97 08/15/19 11:25 99.0 F 77 16 100/58 L 97 08/15/19 08:00 98.7 F 71 18 119/69 97 08/15/19 04:00 98.6 F 71 16 108/61 97 Weight Admit Weight 138 lb 3.2 oz Weight 138 lb 3.2 oz I&O: 08/14/19 08/15/19 08/16/19 06:59 06:59 06:59 Intake Total 1362 882 720 Balance 1362 882 720 Result Diagrams: 08/13/19 08:51 08/14/19 04:21 Hospitalist ROS - Medication Medications: Active Medications Generic Name Dose Route Start Last Admin Trade Name Freq PRN Reason Stop Dose Admin Acetaminophen 650 mg 08/11/19 02:27 08/13/19 00:36 Tylenol PO 650 mg Q4H PRN Administration Headache/Fever/Mild Pain (1-3) Aspirin 81 mg 08/11/19 09:00 08/15/19 09:04 Ecotrin PO 81 mg DAILY MAURICIO Administration Atorvastatin Calcium 40 mg 08/11/19 21:00 08/14/19 20:09 Lipitor PO 40 mg HS MAURICIO Administration Acyclovir Sodium 550 mg/ 111 mls @ 111 mls/hr 08/12/19 17:00 08/15/19 09:04 Sodium Chloride IVPB 111 mls Q8H MAURICIO Administration Ondansetron HCl 4 mg 08/11/19 02:50 08/14/19 10:31 Zofran IVP 4 mg Q6H PRN Administration Nausea/Vomiting Sodium Chloride 10 ml 08/11/19 02:27 08/14/19 09:23 Flush - Normal Saline IVF 10 ml Q12HR PRN Administration Saline Flush - Exam General Appearance: NAD, awake alert Eye: PERRL ENT: normocephalic atraumatic Neck: supple Heart: RRR Respiratory: CTAB Gastrointestinal: normal bowel sounds Neurological: no focal deficits Psychiatric: A&O x 3 Hosp A/P - Plan (1) Weakness of right upper extremity Code(s): R29.898 - OTH SYMPTOMS AND SIGNS INVOLVING THE MUSCULOSKELETAL SYSTEM Status: Acute (2) Fever Code(s): R50.9 - FEVER, UNSPECIFIED Status: Acute (3) Ataxia Code(s): R27.0 - ATAXIA, UNSPECIFIED Status: Acute (4) Confused Code(s): R41.0 - DISORIENTATION, UNSPECIFIED Status: Acute (5) Dyslipidemia Code(s): E78.5 - HYPERLIPIDEMIA, UNSPECIFIED Status: Chronic - Plan * Viral Meningitis /Encephalitis - Discussed with Dr. Simmons, her symptoms are suspicious for Herpes Encephalitis -awaiting the final results ( West Nile, Herpes Symplex ) * TIA- continue aspirin and statin * Cryptococcal Ag was negative * Awaiting CROW to screen for auto-immune disorder * Depth Perception difficulty- recommend follow this up with Ophthalmology * Disposition after clearance from ID, viral panel results may come back in few days in the middle of next week.
[2019-08-15 15:38] VITALS: BP 121/74
[2019-08-15 18:05] VITALS: TEMP 98.3
[2019-08-15] MEDS ORDERED: Senokot 8.6 MG TAB PO SCH (21:00)
--- NOTE | 2019-08-16 13:37 | DIS ---
DATE OF ADMISSION: 08/10/2019 DATE OF DISCHARGE: 08/15/2019 DIAGNOSES.: 1. Altered mentation. 2. Metabolic encephalopathy. 3. Right upper extremity weakness. 4. Ataxia. 5. Hyperlipidemia. 6. Probable viral meningitis/encephalitis that is being ruled out. DISCHARGE MEDICATIONS: 1. Aspirin 81 mg daily. 2. Lipitor 40 mg daily. CONSULT: Infectious Disease. HOSPITAL COURSE: Please refer the daily progress note and H and P for more details. A 63-year-old female, admitted with altered mentation. Workup was negative so far. Her cryptococcal antigen was negative. The viral meningitis workup including West Nile, herpes simplex were currently pending. Her initial confusion has resolved. She is expected to follow up with Dr. Simmons in a week or two. Doc blood cultures were negative for 5 days. She received empiric dose of acyclovir. She had mild right-sided weakness that seems to be resolved. The patient is discharged with aspirin and Lipitor. Her LDL level is 147 and cholesterol 207. The patient is clinically stable to be discharged home. DISCHARGE INSTRUCTIONS: Activity as tolerated. Healthy heart diet. Follow up with Dr. Simmons in 1 to 2 weeks to follow results on the West Nile as well as herpes simplex titers. Follow up with primary care physician in 1 week. Discharge time took over 30 minutes. Job ID: [id number] MTDD
[2019-08-17 12:37] LABS: West Nile Virus IgG Ab - CSF Positive (Negative); West Nile Virus IgM Ab - CSF Negative (Negative)
--- NOTE | 2019-08-18 09:43 | PQF ---
JALYN GOODWIN SONAL MARTINS [id number] CLINICAL DOCUMENTATION CLARIFICATION FORM: POST DISCHARGE Addendum to original discharge summary date: ____ Late entry note date: __ DATE:08/18/2019 ATTN:SONAL MARTINS Please exercise your independent, professional judgment in responding to the clarification form. Clinical indicators are provided on the bottom of this form for your review Please check appropriate box(s): [ ] Right upper extremity weakness due to metabolic encephalopathy [ ] Right upper extremity weakness due to TIA [ ] Right upper extremity weakness due to Ataxia [ x ] Right upper extremity weakness due to unspecified cause [ ] Other diagnosis- [ ] Unable to determine CLINICAL INDICATORS - SIGNS / SYMPTOMS / LABS - Right upper extremity weakness- , 08/14, SONAL MARTINS MD - Altered mentation, metabolic encephalopathy- , 08/14, SONAL MARTINS MD - Ataxia- , 08/14, SONAL MARTINS MD - she had mild right-sided weakness that seems to be resolved- , 08/14, SONAL MARTINS MD - Neurological: no focal deficits-Hospital PN, 08/14, SONAL MARTINS MD - probable viral meningitis/encephalitis that is being ruled out- , 08/14, SONAL MARTINS MD RISK FACTORS - TIA-Hospital PN, 08/14, SONAL MARTINS MD - Metabolic encephalopathy- , 08/14, SONAL MARTINS MD TREATMENT: - Continue Aspirin and statin- Hospital PN, 08/14, SONAL MARTINS MD - Sodium chloride.IV- MAR, 08/10 - Neurology consultation, 08/10, Mady Amaro MD (This form is maintained as a part of the permanent medical record) 2014 [employer]. All Rights Reserved Radha MARKOS
[2019-08-18 15:49] LABS: ANA Symphony (Qualitative) Negative (Negative); ANA Symphony (Quantitative) 0.2 Ratio (< 0.7 Negative); dsDNA IgG Antibody 0.7 IU/mL (<10 Negative)
[2019-08-19 10:14] LABS: Enterovirus RT-PCR Negative (Negative)
== END 2019-08-15 18:39 | disposition home or self-care (01) | DRG 947 ==
LOC: ERS 20:23 → 2SE 21:56 → OBSVTOIN 21:56
PROVIDERS: ADMIT Internal Medicine; ATTEND Internal Medicine
PROC: 009U3ZZ Drainage of Spinal Canal, Percutaneous Approach (ICD-10-PCS; principal; 2019-08-12)
PROC: B01B1ZZ Fluoroscopy of Spinal Cord using Low Osmolar Contrast (ICD-10-PCS; 2019-08-12)
DX: R53.1 Weakness (principal); G93.41 Metabolic encephalopathy; G45.9 Transient cerebral ischemic attack, unspecified; R47.01 Aphasia; R29.810 Facial weakness; R27.0 Ataxia, unspecified; E78.5 Hyperlipidemia, unspecified; R47.1 Dysarthria and anarthria; Z11.59 Encounter for screening for other viral diseases; Z90.710 Acquired absence of both cervix and uterus
CPT/HCPCS: 36415; 36416; 62270; 70450; 70496; 70498; 70551; 71045; 80048; 80053; 80061; 80306; 81003; 82550; 82945; 83605; 83735; 84100; 84145; 84157; 84484; 85025; 85060; 85610; 85730; 86038; 86140; 86225; 86592; 86611; 86780; 86788; 86789; 87040; 87086; 87207; 87498; 87529; 87635; 87798; 87899; 89051; 93005; 93306; 95712; 95816; 95819; 95957; J0133; J2405; J3490; Q9967; U0003

== ENCOUNTER 2019-09-17 08:26 | Outpatient (CLI) | payer BC ==
--- NOTE | 2019-09-17 09:31 | MMO ---
Bilateral MAMMO Bilat Screen [facility]. CLINICAL HISTORY: Patient is 64 years old and is seen for screening. The patient has no family history of breast cancer. The patient has no personal history of cancer. VIEWS: The views performed were: bilateral craniocaudal with tomosynthesis and bilateral mediolateral oblique with tomosynthesis. FILMS COMPARED: The present examination has been compared to prior imaging studies performed at [facility] on 03/23/2013, 05/06/2014, 04/12/2016 and 12/23/2017. This study has been interpreted with the assistance of computer-aided detection. MAMMOGRAM FINDINGS: The breasts are heterogeneously dense, which could obscure a lesion on mammography. There are stable benign appearing calcifications seen in both breasts. There are no suspicious masses, suspicious calcifications, or new areas of architectural distortion. IMPRESSION: THERE IS NO MAMMOGRAPHIC EVIDENCE OF MALIGNANCY. A ROUTINE FOLLOW-UP MAMMOGRAM IN 1 YEAR IS RECOMMENDED. THE RESULTS OF THIS EXAM WERE SENT TO THE PATIENT. ACR BI-RADS Category 2 - Benign finding MAMMOGRAPHY NOTE: 1. A negative mammogram report should not delay a biopsy if a dominant of clinically suspicious mass is present. 2. Approximately 10% to 15% of breast cancers are not detected by mammography. 3. Adenosis and dense breasts may obscure an underlying neoplasm. Reported by: CHRISTOPHER BAUMANN MD Electonically Signed: [id number]
== END 2019-09-17 08:27 | disposition home or self-care (01) ==
LOC: BICMAMMO 08:26
PROVIDERS: ATTEND Obstetrics & Gynecology
DX: Z12.31 Encounter for screening mammogram for malignant neoplasm of breast (principal)
CPT/HCPCS: 77063; 77067

== ENCOUNTER 2020-06-02 15:57 | Outpatient (CLI) | payer BC ==
[2020-06-03 02:35] LABS: SARS-CoV-2 PCR by NAA Not Detected (NotDetected)
== END 2020-06-02 15:58 | disposition home or self-care (01) ==
LOC: LABBT 15:57
PROVIDERS: ATTEND Ophthalmology Retina Specialist
DX: Z01.812 Encounter for preprocedural laboratory examination (principal); H35.372 Puckering of macula, left eye; Z20.822 Contact with and (suspected) exposure to COVID-19
CPT/HCPCS: 87635; U0003; U0005

== ENCOUNTER 2020-06-07 07:07 | Day surgery (SDC) | payer BC ==
[2020-06-06 13:29] VITALS: BMI 26.1
[~2020-06-07 07:07] MED LIST changes: +EPINEPHrine 0.3 MG in Ophthalmic Irrigation Solution 500 ML IRR SCH; +Fentanyl 100 MCG/2 ML VIAL ONE; -Iopamidol-370 76% 500 ML 1 ML ONE; +Midazolam HCl 2 mg/2 ml Vial ONE
[2020-06-07] MEDS ORDERED: Cyclopentolate 1% Opth Drop 2 ML BOT ONE (07:40)
[2020-06-07] MEDS ORDERED: Phenylephrine 2.5% Ophth Soln 5 ML BOT ONE (07:40)
[2020-06-07] MEDS ORDERED: Triamcinolone 40 MG/ML VIAL ONE (10:04)
[2020-06-07] MEDS ORDERED: Lidocaine 1% PF 5 ML VIAL ONE (10:04)
[2020-06-07] MEDS ORDERED: Indocyanine Green 25 MG/10 ML VIAL ONE (10:04)
[2020-06-07] MEDS ORDERED: CEFAZOLIN 1 GM VIAL ONE ×2 (10:04)
[2020-06-07] MEDS ORDERED: Maxitrol 0.1% Opth Oint 3.5 GM TUBE ONE (10:04)
[2020-06-07] MEDS ORDERED: Bupivacaine PF 0.75% SDV 10 ML ONE (10:04)
[2020-06-07] MEDS ORDERED: Lidocaine 4% PF 5 ML AMP ONE (10:04)
[2020-06-07] MEDS ORDERED: PROPOFOL 200 MG/20 ML VIAL ONE (10:04)
== END 2020-06-07 10:46 | disposition home or self-care (01) ==
LOC: SDC 07:07
PROVIDERS: ATTEND Ophthalmology Retina Specialist
PROC: 08NF3ZZ Release Left Retina, Percutaneous Approach (ICD-10-PCS; principal; 2020-06-07)
PROC: 08T53ZZ Resection of Left Vitreous, Percutaneous Approach (ICD-10-PCS; principal; 2020-06-07)
DX: H35.372 Puckering of macula, left eye (principal)
CPT/HCPCS: J0171; J0690; J2250; J2704; J3010; J3301; J3490

== ENCOUNTER 2024-01-15 10:45 | Outpatient (CLI) | payer OTHER | END 2024-01-15 10:46 | disposition home or self-care (01) | LOC: BICCT 10:45 | PROVIDERS: ATTEND Family Medicine | DX: E78.00 Pure hypercholesterolemia, unspecified (principal); I25.10 Atherosclerotic heart disease of native coronary artery without angina pectoris | CPT/HCPCS: 75571 ==